=== PATIENT | male | born 1975 | race Caucasian/White ===

== ENCOUNTER 2024-08-25 06:35 | Day surgery (SDC) | payer BC, OTHER ==
[~2024-08-25] VITALS: Ht 185.4 cm; Wt 118.2 kg
[~2024-08-25 06:35] MED LIST: KETOROLAC TROMETHAMINE 30 MG/ML VIAL ONE; LACTATED RINGER'S 1,000 ML IV SCH
[2024-08-25 06:55] VITALS: BP 137/86
[2024-08-25] MEDS ORDERED: IBLOOD GLUCOSE TEST STRIP 1 EA TEST VI PRN (07:00)
[2024-08-25] MEDS ORDERED: LIDOCAINE HCL 1% 5 ML SDV INJ ONE (07:00)
[2024-08-25] MEDS ORDERED: CEFAZOLIN SODIUM 2 GM/20 ML SYR IV SCH (07:00)
[2024-08-25] MEDS ORDERED: TRANEXAMIC ACID IN NACL,ISO-OS 1,000 MG/100 ML PIGGYBACK IV SCH (07:00)
[2024-08-25] MEDS ORDERED: MIDAZOLAM HCL 2 MG/2 ML VIAL ONE (07:41)
[2024-08-25] MEDS ORDERED: HYDROCODONE/ACETA 5/325 TAB PO PRN (07:45)
[2024-08-25] MEDS ORDERED: fentaNYL citrate 100 MCG/2 ML VIAL ONE (08:02)
[2024-08-25] MEDS ORDERED: SODIUM CHLORIDE 0.9% 20 ML IV ONE (08:08)
[2024-08-25] MEDS ORDERED: ondansetron HCL 4 MG/2 ML VIAL ONE (08:20)
[2024-08-25] MEDS ORDERED: DEXAMETHASONE SOD PHOS 4 MG/ML VIAL ONE (08:20)
[2024-08-25] MEDS ORDERED: KETOROLAC TROMETHAMINE 30 MG/ML VIAL ONE (08:20)
[2024-08-25] MEDS ORDERED: HYDROCODON-ACE1 EA10 PO (08:39)
[2024-08-25] MEDS ORDERED: KETOROLAC TROME10 MG PO (08:39)
[2024-08-25] MEDS ORDERED: DICLOFENAC SODI75 MG PO (08:39)
[2024-08-25 08:59] VITALS: BP 121/91
[2024-08-25] MEDS ORDERED: DICLOFENAC SOD 75 MG TABEC PO SCH (09:00)
--- NOTE | 2024-08-25 09:07 | NUR ---
0900 PT ARRIVED TO DAY SURGERY FROM PACU VIA STREACHER. REPORT TAKEN FROM MARIO Barrow RN. PT AWAKE AND ORIENTED, BREATHING EQUAL AND UNLABORED. PT IV ASSESSED. VITALS TAKEN. SURGICAL SITE CDI. PT HAS ICE ON RIGHT KNEE. PT REPORTS NO PAIN OR NAUSEA AT THIS TIME. PT FAMILY IN ROOM. INFORMED PT ON REQUIRMENTS FOR DISCHAREGE TODAY. PT UNDERSTANDING. PT SCDS ON AND RUNNING. 904 PT HAS JELLO AND ICE WATER AT BEDSIDE. CALL LIGHT WITHIN REACH AND BED IS LOW AND LOCKED.
--- NOTE | 2024-08-25 09:18 | NUR ---
08/25/24 0918 Afia Roberto Jany 0834- PT PRESENTS TO PACU, SEMI LORENZO POSITION, NON REACTIVE TO STIMULUS. OPA IN PLACE WITH 6L PER MASK, BREATHING EVEN AND NON LABORED ONLY REQUIRING HEAD POSITIONING TO MAINTAIN AIRWAY. LR INFUSING TO RFA IV. ABD SOFT, NON DISTENDED. DRESSING IN PLACE TO R KNEE, CDI, PULSES STRONG. ELEVATED ON PILLOW AND ICE IN PLACE. ALL MONITORS IN PLACE. 0845- PT OPENS EYES TO VERBAL STIMULI, FOLLOWS COMMANDS TO REMOVE OPA. REORIENTED TO TIME AND PLACE. PT MOVED TO ROOM AIR. WILL CONTINUE TO MONITOR. 0850- PT DENIES PAIN AND NAUSEA. RESTING INTERMITTENTLY, WAKES ON OWN. ALSO WAKES EASILY TO VERBAL STIMULI. 0900- PT TAKEN BACK TO DAY SURGERY, FAMILY IN ROOM. DRESSING CDI, CMS INTACT. LR INFUSING TO RFA IV. REPORT TO BRISSA CAREY AT BEDSIDE, CARE OF PT TURNED OVER AT THIS TIME.
[2024-08-25 09:49] VITALS: BP 125/80
--- NOTE | 2024-08-25 09:51 | NUR ---
0951 HOURLY ROUNDING DONE. VITALS TAKEN. IV ASSESSED. PT REPORTS NO PAIN OR NAUSEA AT THIS TIME. PT HAS TOLERATED JELLO AND WATER. PT SITTING UPRIGHT IN BED WITH FAMILY AT BEDSIDE. SCD IN PLACE. PT HAS CALL LIGHT WITHIN REACH AND PERSONAL ITEMS WITHIN REACH.
--- NOTE | 2024-08-25 10:16 | NUR ---
0955 PT ABLE TO AMBULATE TO BATHROOM AND VOID 200 MLS OF CLEAR YELLOW URINE. PT ABLE TO AMBULATE BACK TO ROOM. PT GETTING DRESSED WITH PT FAMILY IN ROOM. 1000 DISCAHRGE INFORMATION GONE OVER WITH PT WITH FAMILY AT BEDSIDE. NO QUESTIONS AT THIS TIME. IV DISCONTINUED FOR DISCHARGE. 1005 PT DISCHARGED FROM DAY SURGERY VIA WHEELCHAIR. TO FRONT OF THE HOSPITAL TO PT'S 'S CAR. DISCHARGE INSTURCTIONS WITH PT.
[2024-08-25] MEDS ORDERED: SEVOFLURANE 250 ML BTL INH ONE (14:09)
--- NOTE | 2024-08-27 17:42 | OR ---
[facility] [address], [place] [address] Signed DATE OF OPERATION: 08/25/2024 SURGEON: Eliud Gutierrez MD PREOPERATIVE DIAGNOSIS: Medial meniscus tear, right knee. POSTOPERATIVE DIAGNOSIS: Medial meniscus tear, right knee. PROCEDURE: Knee arthroscopy with partial medial meniscectomy. VICE PRESIDENT OF DEVELOPMENT: None. ANESTHESIA: General. BLOOD LOSS: Minimal. BRIEF HISTORY: Abraham is a 49-year-old gentleman with pain and instability in his knee. Risks and benefits of the operative treatment were discussed with him with nonoperative treatment failed. PROCEDURE IN DETAIL: Once consent was obtained, he was taken to the operating room after adequate anesthesia. He was placed on the operating room table. All downside pressure points were well padded. The left leg was flexed, abducted and externally rotated on a well-padded leg wright. The right leg was placed in a leg wright and prepped and draped in a standard sterile fashion. The portal sites were injected with 0.25% Marcaine with epinephrine. The standard inferolateral and superolateral portals were established and the scope was introduced into the knee. ARTHROSCOPIC FINDINGS: There was moderate to significant synovitis on both medial and lateral aspects of the knee. 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 The remainder of the femoral Electronically Signed By: ELIUD GUTIERREZ MD 08/27/24 1742 PATIENT NAME: GRACEABRAHAM OPERATIVE REPORT DATE OF : 79 REPORT #: [id number] PHYSICIAN: ELIUD GUTIERREZ MD PCP: JEREMY GOMEZ REPORT IS CONFIDENTIAL AND NOT TO BE RELEASED WITHOUT AUTHORIZATION [facility] [address], [place] [address] Signed condyle on the lateral side was intact. Medial femoral condyle showed diffuse grade 2 and there is a grade 3 chondromalacia with several fairly sizable flaps. The tibia was intact in both sides. There is a longitudinal tear in the posterior aspect of the medial meniscus measuring about 1.5 cm. DESCRIPTION OF PROCEDURE: Standard inferomedial portal was established after localization using a spinal needle. Straight biter was then used to trim the meniscus tear posteriorly and further anteriorly to the mid medial portion. This was then smoothed using the shaver and all debris was evacuated. There were multiple cartilaginous loose bodies in the knee prior to the meniscectomy. These were evacuated as well. The scope was then withdrawn. Portals were closed with 3-0 nylon. The knee was injected with 60 mg Toradol at the end of the case. The wounds were dressed with Adaptic, ABD, and Loi wrap. He tolerated the procedure well. All sponge, needle, and instrument counts correct. Eliud Gutierrez MD BA/BASILIO /[id number] Copies: ~ Electronically Signed By: ELIUD GUTIERREZ MD 08/27/24 1742 PATIENT NAME: ABRAHAM EDWARDS OPERATIVE REPORT DATE OF : 79 REPORT #: [id number] PHYSICIAN: ELIUD GUTIERREZ MD PCP: JEREMY GOMEZ REPORT IS CONFIDENTIAL AND NOT TO BE RELEASED WITHOUT AUTHORIZATION
== END 2024-08-25 10:05 | disposition home or self-care (01) ==
LOC: DS 06:35
PROVIDERS: ATTEND Specialist
PROC: 0SBC4ZZ Excision of Right Knee Joint, Percutaneous Endoscopic Approach (ICD-10-PCS; principal; 2024-08-25 08:00)
DX: S83.241A Other tear of medial meniscus, current injury, right knee, initial encounter (principal); S83.511A Sprain of anterior cruciate ligament of right knee, initial encounter; X58.XXXA Exposure to other specified factors, initial encounter; M65.98 Unspecified synovitis and tenosynovitis, other site; M94.261 Chondromalacia, right knee
CPT/HCPCS: 01400; J0690; J1100; J1885; J2250; J2405; J3010; J7121